=== PATIENT | female | born 1960 | race Hispanic/Latino ===

== ENCOUNTER 2017-07-02 18:13 | Inpatient (IN) | payer BC ==
[~2017-07-02] VITALS: Ht 152.4 cm; Wt 53.6 kg
[2017-07-02] MEDS ORDERED: SODIUM CHLORIDE 0.9% 1000ML 1,000 ML IV ONE (19:48)
[2017-07-02] MEDS ORDERED: ONDANSETRON HCL 4 MG/2 ML VIAL ONE (19:48)
[2017-07-02 20:13] LABS: BASOPHILS % (AUTO) 0.3 % (0.0-5.0); EOSINOPHILS % (AUTO) 0.1 % (0.0-8.0); HEMATOCRIT 41.2 % (36-48); LYMPHOCYTES % (AUTO) 5.1 % (21.0-51.0); MEAN CORPUSCULAR HEMOGLOBIN 32.2 pg (27.0-33.0); MEAN CORPUSCULAR HGB CONC 35.6 g/dL (32.0-36.0); MEAN CORPUSCULAR VOLUME 90.5 fL (79-99); MONOCYTES % (AUTO) 7.1 % (3.0-13.0); NEUTROPHILS % (AUTO) 87.4 % (40.0-77.0); PLATELET COUNT (AUTO) 438 K/uL (130-400); RED BLOOD CELL COUNT(AUTO) 4.56 MIL/uL (4.00-5.50); RED CELL DISTRIBUTION WIDTH 14.1 % (11.0-15.5); WHITE BLOOD COUNT (AUTO) 10.8 K/uL (4.8-10.8)
[2017-07-02 20:38] LABS: ALBUMIN 4.1 g/dL (3.5-5.0); BILIRUBIN,DIRECT 0.2 mg/dL (0.0-0.3); BILIRUBIN,TOTAL 0.8 mg/dL (0.2-1.0); CREATININE 1.4 mg/dL (0.5-1.5); TOTAL PROTEIN, SERUM 8.3 g/dL (6.0-8.3)
[2017-07-02 20:46] LABS: POTASSIUM 2.6 mmol/L (3.5-5.1)
[2017-07-02] MEDS ORDERED: POTASSIUM BICARB/CIT AC 25 MEQ TABLET.EFF ONE (21:10)
[2017-07-02 23:06] VITALS: BP 110/76
[2017-07-02] MEDS ORDERED: FAMO20TA8 PO (23:26)
[2017-07-02] MEDS ORDERED: AFAT40TA PO (23:26)
[2017-07-02] MEDS ORDERED: LEVE500T19 PO (23:26)
[2017-07-02] MEDS: SODIUM CHLORIDE 0.9% 1000ML 1,000 ML IV SCH (23:50)
[2017-07-03 00:42] LABS: APPEARANCE,URINE Clear (CLEAR); BILIRUBIN,URINE Negative (NEGATIVE); COLOR,URINE Yellow (YELLOW); GLUCOSE, URINE (UA) Negative (NEGATIVE); KETONES,URINE Trace mg/dL (NEGATIVE); LEUKOCYTE ESTERASE ,URINE Negative (NEGATIVE); NITRATE,URINE Negative (NEGATIVE); OCCULT BLOOD,URINE Negative (NEGATIVE); PROTEIN,URINE Negative (NEGATIVE); UROBILINOGEN,URINE 0.2 mg/dL (0.2-1.0)
[2017-07-03 03:30] VITALS: BP 108/66
[2017-07-03 04:06] LABS: OCCULT BLOOD STOOL SINGLE ONLY NEGATIVE (NEGATIVE)
[2017-07-03 05:51] LABS: HEMATOCRIT 38.3 % (36-48); MEAN CORPUSCULAR HEMOGLOBIN 31.3 pg (27.0-33.0); MEAN CORPUSCULAR HGB CONC 34.5 g/dL (32.0-36.0); MEAN CORPUSCULAR VOLUME 90.8 fL (79-99); PLATELET COUNT (AUTO) 387 K/uL (130-400); RED BLOOD CELL COUNT(AUTO) 4.22 MIL/uL (4.00-5.50); RED CELL DISTRIBUTION WIDTH 14.2 % (11.0-15.5)
[2017-07-03 06:22] LABS: ALBUMIN 3.5 g/dL (3.5-5.0); CREATININE 1.3 mg/dL (0.5-1.5)
[2017-07-03 06:36] LABS: POTASSIUM 2.8 mmol/L (3.5-5.1)
[2017-07-03 07:29] VITALS: BP 112/71
[2017-07-03] MEDS: POTASSIUM CHLORIDE 20 MEQ ERTAB PO SCH ×2 (08:50→08:51)
[2017-07-03] MEDS: ONDANSETRON HCL 4 MG/2 ML VIAL IVP PRN ×3 (08:50→23:49)
[2017-07-03] MEDS: FAMOTIDINE/PF 20 MG/2 ML VIAL IV SCH (08:50)
[2017-07-03] MEDS: SODIUM CHLORIDE 0.9% 1000ML 1,000 ML IV SCH ×2 (09:10→17:42)
[2017-07-03 11:03] VITALS: BP 126/71
[2017-07-03] MEDS: POTASSIUM CHLORIDE 10% ELIXIR 20 MEQ/15 ML UDCUP PO SCH (12:50)
[2017-07-03] MEDS ORDERED: ERYTHROMYCIN BASE 0.5% OPHTH OINT 1 GM TUBE OU SCH (14:00)
[2017-07-03] MEDS ORDERED: LACTULOSE 20 GM/30 ML UDCUP PO SCH (14:00)
[2017-07-03 16:15] VITALS: BP 100/69
[2017-07-03] MEDS: LEVETIRACETAM 500 MG TABLET PO SCH (21:00)
[2017-07-03 21:21] VITALS: BP 105/71
[2017-07-04] VITALS (8 sets, daily range): BP systolic 94–118; BP diastolic 61–74
[2017-07-04] MEDS: AFATINIB DIMALEATE 40 MG PO SCH (05:00)
[2017-07-04] MEDS: ONDANSETRON HCL 4 MG/2 ML VIAL IVP PRN ×2 (05:26→11:55)
[2017-07-04] MEDS: SODIUM CHLORIDE 0.9% 1000ML 1,000 ML IV SCH ×3 (05:26→23:32)
[2017-07-04 06:10] LABS: HEMATOCRIT 32.9 % (36-48); MEAN CORPUSCULAR HGB CONC 36.1 g/dL (32.0-36.0); MEAN CORPUSCULAR VOLUME 91.5 fL (79-99); PLATELET COUNT (AUTO) 358 K/uL (130-400); RED CELL DISTRIBUTION WIDTH 14.1 % (11.0-15.5); WHITE BLOOD COUNT (AUTO) 7.6 K/uL (4.8-10.8)
[2017-07-04 06:17] LABS: CREATININE 1.1 mg/dL (0.5-1.5)
[2017-07-04 06:22] LABS: EOSINOPHILS % (MANUAL) 2 % (1-6); LYMPHOCYTES % (MANUAL) 17 % (22-44); MAN.DIFF COMMENT-IMPRESSION MANUAL DIFFERENTIAL; MONOCYTES % (MANUAL) 5 % (2-9); PLATELET MORPHOLOGY COMMENT ADEQUATE; SEGMENTED NEUTROPHILS % 76 % (40-70)
[2017-07-04] MEDS ORDERED: POLYETHYLENE GLYCOL 3350 17 GM POWD.PACK PO SCH (09:00)
[2017-07-04] MEDS: LEVETIRACETAM 500 MG TABLET PO SCH ×2 (09:10→20:58)
[2017-07-04] MEDS: FAMOTIDINE/PF 20 MG/2 ML VIAL IV SCH (09:10)
[2017-07-04] MEDS: POTASSIUM CHLORIDE 10% ELIXIR 20 MEQ/15 ML UDCUP PO SCH (11:55)
[2017-07-04] MEDS ORDERED: HYDROCORTISONE 0.5% 30 GM OINT TP PRN (12:15)
[2017-07-04] MEDS ORDERED: HYDROCORTISONE 1% 28.35 GM CREAM TP PRN (13:02)
[2017-07-05 03:18] VITALS: BP 118/70
[2017-07-05] MEDS: AFATINIB DIMALEATE 40 MG PO SCH (05:00)
[2017-07-05] MEDS: SODIUM CHLORIDE 0.9% 1000ML 1,000 ML IV SCH (05:04)
[2017-07-05 07:34] VITALS: BP 102/67
[2017-07-05] MEDS: LEVETIRACETAM 500 MG TABLET PO SCH (09:00)
[2017-07-05] MEDS: FAMOTIDINE/PF 20 MG/2 ML VIAL IV SCH (11:07)
[2017-07-05 11:17] VITALS: BP 111/76
[2017-07-05] MEDS: ONDANSETRON HCL 4 MG/2 ML VIAL IVP PRN (12:25)
[2017-07-05] MEDS: POTASSIUM CHLORIDE 10% ELIXIR 20 MEQ/15 ML UDCUP PO SCH (12:26)
[2017-09-30] MEDS ORDERED: VERA40TA5 PO (13:09)
== END 2017-07-05 12:40 | disposition home or self-care (01) | DRG 392 ==
LOC: EDH 18:13 → OBSVTOIN 21:56 → EDHIP 21:56 → 4BH 22:30 → WSH 07-04 12:25
PROVIDERS: ADMIT Internal Medicine Nephrology; ATTEND Internal Medicine Nephrology
DX: R11.2 Nausea with vomiting, unspecified (principal); C79.31 Secondary malignant neoplasm of brain; C34.90 Malignant neoplasm of unspecified part of unspecified bronchus or lung; E86.9 Volume depletion, unspecified; Z51.11 Encounter for antineoplastic chemotherapy; Z82.49 Family history of ischemic heart disease and other diseases of the circulatory system; Z92.3 Personal history of irradiation; Z90.710 Acquired absence of both cervix and uterus; Z85.118 Personal history of other malignant neoplasm of bronchus and lung; Z88.8 Allergy status to other drugs, medicaments and biological substances
CPT/HCPCS: 36415; 76700; 80048; 80053; 80076; 81003; 82270; 83690; 85025; 85027; 87046; 87177; 87205; 87324; J2405; J3490; J7030

== ENCOUNTER 2017-08-14 02:39 | Emergency (ER) | payer BC ==
[~2017-08-14 02:39] MED LIST: AFAT40TA PO; FAMO20TA8 PO; LEVE500T19 PO
[2017-08-14] MEDS ORDERED: ADENOSINE 3 MG/ML 2ML VIAL IV ONE (03:11)
[2017-08-14 03:39] LABS: CREATINE KINASE MB 0.5 ng/mL (0.5-3.6); THYROID STIMULATING HORMONE 1.83 uIU/mL (0.36-3.74)
[2017-08-14] MEDS ORDERED: METOPROLOL TARTRATE 50 MG TAB ONE (05:34)
[2017-09-30] MEDS ORDERED: VERA40TA5 PO (13:09)
== END 2017-08-14 06:56 | disposition home or self-care (01) ==
LOC: EDH 02:39
DX: I47.1 Supraventricular tachycardia (principal); Z85.118 Personal history of other malignant neoplasm of bronchus and lung; Z85.841 Personal history of malignant neoplasm of brain; Z88.8 Allergy status to other drugs, medicaments and biological substances
CPT/HCPCS: 36415; 71045; 82550; 82553; 84443; 84484; 93005 ×2; 96374; 99285; J0153

== ENCOUNTER 2017-09-12 03:25 | Observation (INO) | payer BC ==
[~2017-09-12] VITALS: Ht 152.4 cm; Wt 53.6 kg
[2017-09-12] MEDS ORDERED: ASPIRIN 325 MG TABLET ONE (03:34)
[2017-09-12] MEDS ORDERED: ADENOSINE 3 MG/ML 2ML VIAL IV ONE (03:36)
[2017-09-12] MEDS ORDERED: SODIUM CHLORIDE 0.9% 1000ML 1,000 ML IV ONE (03:36)
[2017-09-12] MEDS ORDERED: ONDANSETRON HCL MDV 20ML 2 MG/ML VIAL ONE (03:45)
[2017-09-12 04:00] LABS: BASOPHILS % (AUTO) 0.6 % (0.0-5.0); EOSINOPHILS % (AUTO) 0.7 % (0.0-8.0); HEMATOCRIT 37.8 % (36-48); LYMPHOCYTES % (AUTO) 29.1 % (21.0-51.0); MEAN CORPUSCULAR HEMOGLOBIN 32.4 pg (27.0-33.0); MEAN CORPUSCULAR HGB CONC 34.3 g/dL (32.0-36.0); MEAN CORPUSCULAR VOLUME 94.5 fL (79-99); MONOCYTES % (AUTO) 12.4 % (3.0-13.0); NEUTROPHILS % (AUTO) 57.2 % (40.0-77.0); PLATELET COUNT (AUTO) 351 K/uL (130-400); RED BLOOD CELL COUNT(AUTO) 3.99 MIL/uL (4.00-5.50); RED CELL DISTRIBUTION WIDTH 13.9 % (11.0-15.5); WHITE BLOOD COUNT (AUTO) 5.8 K/uL (4.8-10.8)
[2017-09-12 04:05] LABS: CARBON DIOXIDE 28 mmol/L (21-32); CHLORIDE 107 mmol/L (101-111); GLOMERULAR FILTR. RATE CALC 61 mL/min (>60); GLUCOSE,RANDOM 138 mg/dL (70-105); POTASSIUM 3.2 mmol/L (3.5-5.1); SODIUM SERUM 144 mmol/L (136-145); UREA NITROGEN, BLOOD 16 mg/dL (7-18)
[2017-09-12 04:11] LABS: INR 0.95 (0.85-1.15); PARTIAL THROMBOPLASTIN TIME 26.2 SEC (26.3-35.5)
[2017-09-12 04:19] LABS: ALANINE AMINOTRANSFERASE 29 U/L (12-78); ALBUMIN 3.8 g/dL (3.5-5.0); ASPARTATE AMINOTRANSFERASE 37 U/L (10-37); BILIRUBIN,TOTAL 0.4 mg/dL (0.2-1.0); CREATINE KINASE MB < 0.5 ng/mL (0.5-3.6); CREATINE KINASE, TOTAL 85 U/L (21-232); MYOGLOBIN 31 ng/mL (10-92); TOTAL PROTEIN, SERUM 7.4 g/dL (6.0-8.3)
[2017-09-12] MEDS ORDERED: POTASSIUM BICARB/CIT AC 25 MEQ TABLET.EFF ONE (04:54)
[2017-09-12] MEDS ORDERED: METO25TA6 PO (07:58)
[2017-09-12] MEDS ORDERED: OSIM80TA PO (07:58)
[2017-09-12] MEDS: TAGRISSO 80 MG PO SCH (09:00)
[2017-09-12] MEDS ORDERED: METOPROLOL TARTRATE 25 MG TAB PO SCH (09:00)
[2017-09-12] MEDS: ASPIRIN 81MG TAB.CHEW PO SCH (09:30)
[2017-09-12] MEDS ORDERED: MAGNESIUM 2GM PREMIX 50ML 50 ML IV PRN (09:45)
[2017-09-12] MEDS ORDERED: MAGNESIUM 2GM PREMIX 50ML 50 ML IV ONE (10:38)
[2017-09-12 12:50] VITALS: BP 131/75
[2017-09-12 15:16] LABS: CREATINE KINASE MB < 0.5 ng/mL (0.5-3.6); CREATINE KINASE, TOTAL 61 U/L (21-232); MYOGLOBIN 23 ng/mL (10-92); TROPONIN I < 0.04 ng/mL (0.00-0.06)
[2017-09-12] MEDS ORDERED: LIDOCAINE HCL-MPF 1% 2ML VIAL IVP PRN (15:45)
[2017-09-12] MEDS ORDERED: POTASSIUM CHLORIDE 10% ELIXIR 20 MEQ/15 ML UDCUP PO PRN (15:45)
[2017-09-12] MEDS ORDERED: POTASSIUM CHLORIDE 20 MEQ ERTAB PO PRN (15:45)
[2017-09-12] MEDS ORDERED: POTASSIUM CHLORIDE 20MEQ/100ML 100 ML IV PRN (15:45)
[2017-09-12 16:49] VITALS: BP 109/65
[2017-09-12 19:51] VITALS: BP 117/66
[2017-09-12] MEDS: SOTALOL HCL 80 MG TABLET PO SCH (20:46)
[2017-09-12 23:27] VITALS: BP 110/72
[2017-09-13 03:59] VITALS: BP 91/64
[2017-09-13 04:11] LABS: HEMATOCRIT 32.3 % (36-48); MEAN CORPUSCULAR HEMOGLOBIN 34.6 pg (27.0-33.0); MEAN CORPUSCULAR HGB CONC 36.7 g/dL (32.0-36.0); MEAN CORPUSCULAR VOLUME 94.3 fL (79-99); PLATELET COUNT (AUTO) 323 K/uL (130-400); RED BLOOD CELL COUNT(AUTO) 3.42 MIL/uL (4.00-5.50); WHITE BLOOD COUNT (AUTO) 4.6 K/uL (4.8-10.8)
[2017-09-13 04:15] LABS: POTASSIUM 4.2 mmol/L (3.5-5.1)
[2017-09-13 04:21] LABS: BAND NEUTROPHILS % (MANUAL) 2 % (0-2); EOSINOPHILS % (MANUAL) 2 % (1-6); LYMPHOCYTES % (MANUAL) 40 % (22-44); MAN.DIFF COMMENT-IMPRESSION MANUAL DIFFERENTIAL; MONOCYTES % (MANUAL) 12 % (2-9); PLATELET MORPHOLOGY COMMENT ADEQUATE; SEGMENTED NEUTROPHILS % 44 % (40-70)
[2017-09-13 07:00] VITALS: BP 113/72
[2017-09-13] MEDS: ASPIRIN 81MG TAB.CHEW PO SCH (09:00)
[2017-09-13] MEDS ORDERED: ACETAMINOPHEN 325 MG TAB ONE (09:09)
[2017-09-13] MEDS: SOTALOL HCL 80 MG TABLET PO SCH ×2 (09:13→20:40)
[2017-09-13] MEDS: TAGRISSO 80 MG PO SCH (09:15)
[2017-09-13] MEDS ORDERED: ACETAMINOPHEN 325 MG TAB PO PRN (09:15)
[2017-09-13 11:00] VITALS: BP 105/70
[2017-09-13 16:00] VITALS: BP 114/67
[2017-09-13 19:55] VITALS: BP 118/78
[2017-09-13 23:23] VITALS: BP 115/71
[2017-09-14 03:44] LABS: MAGNESIUM 2.1 mg/dL (1.80-2.40); POTASSIUM 4.1 mmol/L (3.5-5.1)
[2017-09-14 03:47] VITALS: BP 90/56
[2017-09-14 07:15] VITALS: BP 121/78
[2017-09-14] MEDS: ASPIRIN 81MG TAB.CHEW PO SCH (08:04)
[2017-09-14] MEDS: SOTALOL HCL 80 MG TABLET PO SCH (08:05)
[2017-09-14] MEDS: TAGRISSO 80 MG PO SCH (08:05)
[2017-09-14] MEDS ORDERED: SOTA80TA PO (09:13)
[2017-09-30] MEDS ORDERED: VERA40TA5 PO (13:09)
== END 2017-09-14 10:10 | disposition home or self-care (01) ==
LOC: EDH 03:25 → EDHIP 04:44 → 2DH 11:56
PROVIDERS: ADMIT Internal Medicine Nephrology; ATTEND Internal Medicine Nephrology
DX: I47.1 Supraventricular tachycardia (principal); C34.90 Malignant neoplasm of unspecified part of unspecified bronchus or lung; C79.31 Secondary malignant neoplasm of brain; E87.6 Hypokalemia; I25.10 Atherosclerotic heart disease of native coronary artery without angina pectoris; I25.2 Old myocardial infarction; Z85.118 Personal history of other malignant neoplasm of bronchus and lung; Z90.710 Acquired absence of both cervix and uterus; Z92.21 Personal history of antineoplastic chemotherapy; Z82.49 Family history of ischemic heart disease and other diseases of the circulatory system
CPT/HCPCS: 36415 ×3; 71045; 80048; 80053; 82550 ×2; 82553 ×2; 83735 ×3; 83874 ×2; 84132; 84484 ×2; 85025 ×2; 85610; 85730; 93005 ×3; 99285; G0378 ×53; J0153; J3475; J7030

== ENCOUNTER 2017-09-24 07:12 | Inpatient (IN) | payer BC ==
[~2017-09-24] VITALS: Ht 152.4 cm; Wt 53.2 kg
[~2017-09-24 07:12] MED LIST changes: -AFAT40TA PO; -FAMO20TA8 PO; +OSIM80TA PO; +SOTA80TA PO
[2017-09-24] MEDS ORDERED: SODIUM CHLORIDE 0.9% 1000ML 1,000 ML IV ONE (07:32)
[2017-09-24] MEDS ORDERED: ADENOSINE 3 MG/ML 2ML VIAL IV ONE (07:39)
[2017-09-24 07:56] LABS: INR 0.95 (0.85-1.15); PARTIAL THROMBOPLASTIN TIME 25.8 SEC (26.3-35.5)
[2017-09-24 08:09] LABS: CARBON DIOXIDE 24 mmol/L (21-32); CHLORIDE 105 mmol/L (101-111); GLOMERULAR FILTR. RATE CALC 61 mL/min (>60); GLUCOSE,RANDOM 130 mg/dL (70-105); POTASSIUM 3.2 mmol/L (3.5-5.1); SODIUM SERUM 140 mmol/L (136-145); UREA NITROGEN, BLOOD 16 mg/dL (7-18)
[2017-09-24 08:25] LABS: ALANINE AMINOTRANSFERASE 21 U/L (12-78); ALBUMIN 3.6 g/dL (3.5-5.0); ASPARTATE AMINOTRANSFERASE 24 U/L (10-37); BILIRUBIN,TOTAL 0.4 mg/dL (0.2-1.0); CREATINE KINASE MB < 0.5 ng/mL (0.5-3.6); CREATINE KINASE, TOTAL 62 U/L (21-232); TOTAL PROTEIN, SERUM 7.1 g/dL (6.0-8.3)
[2017-09-24 08:29] LABS: BASOPHILS % (AUTO) 0.8 % (0.0-5.0); EOSINOPHILS % (AUTO) 0.7 % (0.0-8.0); HEMATOCRIT 37.3 % (36-48); MEAN CORPUSCULAR HEMOGLOBIN 32.2 pg (27.0-33.0); MEAN CORPUSCULAR VOLUME 94.6 fL (79-99); MONOCYTES % (AUTO) 10.8 % (3.0-13.0); NEUTROPHILS % (AUTO) 64.7 % (40.0-77.0); PLATELET COUNT (AUTO) 269 K/uL (130-400); RED BLOOD CELL COUNT(AUTO) 3.95 MIL/uL (4.00-5.50); RED CELL DISTRIBUTION WIDTH 13.8 % (11.0-15.5); WHITE BLOOD COUNT (AUTO) 5.6 K/uL (4.8-10.8)
[2017-09-24] MEDS ORDERED: POTASSIUM BICARB/CIT AC 25 MEQ TABLET.EFF ONE (09:44)
[2017-09-24] MEDS ORDERED: ENOXAPARIN SODIUM 40 MG/0.4 ML SYRINGE SQ ONE (09:44)
[2017-09-24] MEDS ORDERED: SOTALOL HCL 80 MG TABLET PO SCH (10:11)
[2017-09-24] MEDS ORDERED: DILTIAZEM HCL 60 MG TABLET PO SCH (10:12)
[2017-09-24] MEDS ORDERED: DILTIAZEM HCL 60 MG TABLET ONE (10:42)
[2017-09-24] MEDS: VERAPAMIL HCL 80 MG TABLET PO SCH ×2 (15:15→22:19)
[2017-09-24 17:40] VITALS: BP 122/72
[2017-09-24] MEDS ORDERED: ACETAMINOPHEN 325 MG TAB PO PRN (19:30)
[2017-09-24] MEDS ORDERED: ONDANSETRON HCL 4 MG/2 ML VIAL IVP PRN (19:30)
[2017-09-24 19:49] VITALS: BP 112/69
[2017-09-25] VITALS: BP 114/64
[2017-09-25 04:00] VITALS: BP 122/76
[2017-09-25 05:35] LABS: HEMATOCRIT 32.2 % (36-48); MEAN CORPUSCULAR HEMOGLOBIN 33.7 pg (27.0-33.0); MEAN CORPUSCULAR HGB CONC 35.5 g/dL (32.0-36.0); MEAN CORPUSCULAR VOLUME 94.8 fL (79-99); PLATELET COUNT (AUTO) 254 K/uL (130-400); RED CELL DISTRIBUTION WIDTH 14.1 % (11.0-15.5); WHITE BLOOD COUNT (AUTO) 3.9 K/uL (4.8-10.8)
[2017-09-25 06:00] LABS: CREATININE 0.9 mg/dL (0.5-1.5); MAGNESIUM 2.1 mg/dL (1.80-2.40); POTASSIUM 3.6 mmol/L (3.5-5.1); THYROID STIMULATING HORMONE 2.18 uIU/mL (0.36-3.74)
[2017-09-25] MEDS: VERAPAMIL HCL 80 MG TABLET PO SCH ×2 (06:31→14:59)
[2017-09-25 07:45] VITALS: BP 129/78
[2017-09-25] MEDS ORDERED: ENOXAPARIN SODIUM 40 MG/0.4 ML SYRINGE SQ SCH (09:00)
[2017-09-25] MEDS ORDERED: PANTOPRAZOLE 40 MG/VIAL IVP SCH (09:00)
[2017-09-25] MEDS ORDERED: VERA120C2 PO (10:30)
[2017-09-25 11:36] VITALS: BP 109/75
[2017-09-26] MEDS ORDERED: PANTOPRAZOLE SODIUM 40 MG TABLET.DR PO SCH (07:30)
[2017-09-30] MEDS ORDERED: VERA40TA5 PO (13:09)
== END 2017-09-25 15:50 | disposition home or self-care (01) | DRG 309 ==
LOC: EDH 07:12 → EDHIP 08:20 → OBSVTOIN 08:20 → 2DH 17:36
PROVIDERS: ADMIT Internal Medicine Nephrology; ATTEND Internal Medicine Nephrology
DX: I47.1 Supraventricular tachycardia (principal); C34.90 Malignant neoplasm of unspecified part of unspecified bronchus or lung; E87.6 Hypokalemia; I25.10 Atherosclerotic heart disease of native coronary artery without angina pectoris; D64.9 Anemia, unspecified; Z90.710 Acquired absence of both cervix and uterus; Z51.11 Encounter for antineoplastic chemotherapy; Z85.841 Personal history of malignant neoplasm of brain
CPT/HCPCS: 36415; 71045; 80048; 80053; 82550; 82553; 83735; 84443; 84484; 85025; 85027; 85610; 85730; 93005; 99291; C9113; J0153; J1650; J7030

== ENCOUNTER 2017-09-29 20:45 | Emergency (ER) | payer BC ==
[~2017-09-29] VITALS: Ht 160 cm; Wt 72.6 kg
[~2017-09-29 20:45] MED LIST changes: -LEVE500T19 PO; -SOTA80TA PO; +VERA120C2 PO
[2017-09-29] MEDS ORDERED: METOPROLOL TARTRATE 1 MG/ML 5ML VIAL IV ONE (20:57)
[2017-09-29 20:58] LABS: BASOPHILS % (AUTO) 0.6 % (0.0-5.0); HEMATOCRIT 36.4 % (36-48); LYMPHOCYTES % (AUTO) 40.2 % (21.0-51.0); MEAN CORPUSCULAR HEMOGLOBIN 32.1 pg (27.0-33.0); MEAN CORPUSCULAR HGB CONC 33.9 g/dL (32.0-36.0); MEAN CORPUSCULAR VOLUME 94.6 fL (79-99); MONOCYTES % (AUTO) 14.7 % (3.0-13.0); NEUTROPHILS % (AUTO) 43.5 % (40.0-77.0); PLATELET COUNT (AUTO) 304 K/uL (130-400); RED BLOOD CELL COUNT(AUTO) 3.85 MIL/uL (4.00-5.50); WHITE BLOOD COUNT (AUTO) 4.8 K/uL (4.8-10.8)
[2017-09-29 21:12] LABS: CARBON DIOXIDE 28 mmol/L (21-32); CHLORIDE 106 mmol/L (101-111); GLOMERULAR FILTR. RATE CALC 61 mL/min (>60); GLUCOSE,RANDOM 131 mg/dL (70-105); POTASSIUM 3.2 mmol/L (3.5-5.1); SODIUM SERUM 144 mmol/L (136-145); UREA NITROGEN, BLOOD 12 mg/dL (7-18)
[2017-09-29] MEDS ORDERED: DILTIAZEM HCL 5 MG/ML 5 ML VIAL IVP SCH (21:15)
[2017-09-29] MEDS ORDERED: POTASSIUM CHLORIDE 20 MEQ ERTAB PO ONE (21:23)
[2017-09-29 21:26] LABS: ALANINE AMINOTRANSFERASE 25 U/L (12-78); ASPARTATE AMINOTRANSFERASE 24 U/L (10-37); BILIRUBIN,TOTAL 0.3 mg/dL (0.2-1.0); CREATINE KINASE MB < 0.5 ng/mL (0.5-3.6); CREATINE KINASE, TOTAL 77 U/L (21-232); MYOGLOBIN 30 ng/mL (10-92); TOTAL PROTEIN, SERUM 7.7 g/dL (6.0-8.3)
[2017-09-29 22:18] LABS: INR 0.94 (0.85-1.15); PARTIAL THROMBOPLASTIN TIME 26.5 SEC (26.3-35.5); PROTHROMBIN TIME 9.9 SEC (9.6-11.6)
[2017-09-30] MEDS ORDERED: VERA40TA5 PO (13:09)
== END 2017-09-29 22:25 | disposition home or self-care (01) ==
LOC: EDH 20:45
DX: I47.1 Supraventricular tachycardia (principal); I25.10 Atherosclerotic heart disease of native coronary artery without angina pectoris; E11.9 Type 2 diabetes mellitus without complications; Z85.841 Personal history of malignant neoplasm of brain; Z85.118 Personal history of other malignant neoplasm of bronchus and lung; Z88.8 Allergy status to other drugs, medicaments and biological substances
CPT/HCPCS: 36415; 71045; 80053; 82550; 82553; 83874; 84484; 85025; 85610; 85730; 93005 ×2; 94761; 96374; 96375; 99291; J3490

== ENCOUNTER 2017-10-03 05:47 | Observation (INO) | payer BC ==
[2017-09-30 12:58] VITALS: BP 130/72
[~2017-10-03] VITALS: Ht 154.9 cm; Wt 55.1 kg
[2017-10-03] VITALS (14 sets, daily range): BP systolic 114–147; BP diastolic 72–88
[~2017-10-03 05:47] MED LIST changes: -VERA120C2 PO; +VERA40TA5 PO
[2017-10-03] MEDS ORDERED: SODIUM CHLORIDE 0.9% 1000ML 1,000 ML IV ONE (07:31)
[2017-10-03] MEDS ORDERED: LIDOCAINE HCL 2% 20ML ONE (07:38)
[2017-10-03] MEDS ORDERED: MIDAZOLAM HCL 1 MG/ML 2ML VIAL ONE ×6 (07:54→11:34)
[2017-10-03] MEDS ORDERED: MEPERIDINE-PF 25 MG/ML SYG ONE ×4 (07:54→11:34)
[2017-10-03] MEDS ORDERED: ISOPROTERENOL HCL 0.2 MG/ML AMP/VIAL/BAG ONE (08:05)
[2017-10-03] MEDS ORDERED: FENTANYL CITRATE PF 50 MCG/1 ML 2ML VIAL ONE (08:09)
[2017-10-03] MEDS ORDERED: ACETAMINOPHEN-CODEINE 300/30MG TAB PO PRN (12:30)
[2017-10-03] MEDS ORDERED: ACETAMINOPHEN 325 MG TAB PO PRN (12:30)
[2017-10-03] MEDS ORDERED: POTASSIUM CHLORIDE 20 MEQ ERTAB PO PRN (21:45)
[2017-10-03] MEDS ORDERED: HYDRALAZINE HCL 20 MG/ML VIAL IV PRN (21:45)
[2017-10-03] MEDS ORDERED: POTASSIUM CHLORIDE 10% ELIXIR 20 MEQ/15 ML UDCUP PO PRN (21:45)
[2017-10-03] MEDS ORDERED: POTASSIUM CHLORIDE 20MEQ/100ML 100 ML IV PRN (21:45)
[2017-10-03] MEDS ORDERED: LIDOCAINE HCL-MPF 1% 2ML VIAL IVP PRN (21:45)
[2017-10-04 03:15] VITALS: BP 114/63
[2017-10-04 04:02] LABS: HEMATOCRIT 33.6 % (36-48); MEAN CORPUSCULAR HEMOGLOBIN 32.5 pg (27.0-33.0); MEAN CORPUSCULAR HGB CONC 34.4 g/dL (32.0-36.0); MEAN CORPUSCULAR VOLUME 94.5 fL (79-99); PLATELET COUNT (AUTO) 249 K/uL (130-400); RED BLOOD CELL COUNT(AUTO) 3.55 MIL/uL (4.00-5.50); RED CELL DISTRIBUTION WIDTH 14.2 % (11.0-15.5); WHITE BLOOD COUNT (AUTO) 5.3 K/uL (4.8-10.8)
[2017-10-04 04:12] LABS: POTASSIUM 4.4 mmol/L (3.5-5.1)
[2017-10-04 07:20] VITALS: BP 122/76
[2017-10-04] MEDS ORDERED: TAGRISSO 80 MG PO SCH (09:00)
[2017-10-04 11:25] VITALS: BP 116/80
== END 2017-10-04 12:25 | disposition home or self-care (01) ==
LOC: DAH 05:47 → DAHIP 05:48 → DAH 05:48 → 2CH 13:04
PROVIDERS: ADMIT Family Medicine; ATTEND Family Medicine
DX: I47.1 Supraventricular tachycardia (principal); I25.10 Atherosclerotic heart disease of native coronary artery without angina pectoris; E87.6 Hypokalemia; Z90.710 Acquired absence of both cervix and uterus; Z85.118 Personal history of other malignant neoplasm of bronchus and lung; Z85.841 Personal history of malignant neoplasm of brain
CPT/HCPCS: 36415 ×2; 80048; 84132; 85027; 93005; 93613; 93621; 93623; 93653; A4649; C1730 ×4; C1732; C1894 ×5; G0378 ×31; J1644; J2175 ×4; J2250 ×6; J3010; J3490 ×2; J7030; 99156; 99157

== ENCOUNTER 2018-08-26 21:10 | Emergency (ER) | payer BC ==
[2018-08-26] MEDS ORDERED: METOPROLOL TARTRATE 1 MG/ML 5ML VIAL IV ONE (21:51)
[2018-08-26 22:22] LABS: BASOPHILS % (AUTO) 0.4 % (0.0-5.0); EOSINOPHILS % (AUTO) 0.4 % (0.0-8.0); HEMATOCRIT 37.5 % (36-48); LYMPHOCYTES % (AUTO) 18.6 % (21.0-51.0); MEAN CORPUSCULAR HEMOGLOBIN 32.5 pg (27.0-33.0); MEAN CORPUSCULAR HGB CONC 33.5 g/dL (32.0-36.0); MEAN CORPUSCULAR VOLUME 96.9 fL (79-99); NEUTROPHILS % (AUTO) 69.6 % (40.0-77.0); NUCLEATED RED BLOOD CELLS 0.1 % (0.0-0.19); PLATELET COUNT (AUTO) 332 K/uL (130-400); RED BLOOD CELL COUNT(AUTO) 3.87 MIL/uL (4.00-5.50); RED CELL DISTRIBUTION WIDTH 13.8 % (11.0-15.5); WHITE BLOOD COUNT (AUTO) 5.7 K/uL (4.8-10.8)
[2018-08-26 22:32] LABS: CREATININE 0.9 mg/dL (0.5-1.5); POTASSIUM 3.7 mmol/L (3.5-5.1)
[2018-08-26 22:36] LABS: INR 0.92 (0.85-1.15); PARTIAL THROMBOPLASTIN TIME 27.5 SEC (26.3-35.5); PROTHROMBIN TIME 9.7 SEC (9.6-11.6)
[2018-08-26 22:45] LABS: ALBUMIN 4.1 g/dL (3.5-5.0); BILIRUBIN,TOTAL 0.4 mg/dL (0.2-1.0); TOTAL PROTEIN, SERUM 7.6 g/dL (6.0-8.3)
[2018-08-26 23:10] LABS: B-TYPE NATRIURETIC PEPTIDE 40 pg/mL (0-100)
== END 2018-08-27 00:33 | disposition home or self-care (01) ==
LOC: EDH 21:10
DX: R00.0 Tachycardia, unspecified (principal); R00.2 Palpitations; I25.2 Old myocardial infarction; I25.10 Atherosclerotic heart disease of native coronary artery without angina pectoris; E11.9 Type 2 diabetes mellitus without complications; Z79.4 Long term (current) use of insulin; Z85.118 Personal history of other malignant neoplasm of bronchus and lung; Z85.841 Personal history of malignant neoplasm of brain; Z91.041 Radiographic dye allergy status
CPT/HCPCS: 36415; 71045; 80053; 82550; 83880; 84484; 85025; 85610; 85730; 93005 ×2; 96374; 99285; J3490

== ENCOUNTER 2020-11-04 08:13 | Emergency (ER) | payer BC ==
[~2020-11-04] VITALS: Ht 152.4 cm; Wt 59.4 kg
[2020-11-04] MEDS ORDERED: 0.9%NACL 1000ML 1,000 ML IV SCH (08:30)
[2020-11-04] MEDS ORDERED: ONDANSETRON 4MG INJ IVP SCH (08:30)
[2020-11-04 08:31] LABS: BASOPHILS % (AUTO) 0.5 % (0.0-5.0); EOSINOPHILS % (AUTO) 1.2 % (0.0-8.0); HEMATOCRIT 36.5 % (36-48); LYMPHOCYTES % (AUTO) 17.3 % (21.0-51.0); MEAN CORPUSCULAR HEMOGLOBIN 32.6 pg (27.0-33.0); MEAN CORPUSCULAR HGB CONC 32.6 g/dL (32.0-36.0); MONOCYTES % (AUTO) 12.1 % (3.0-13.0); NEUTROPHILS % (AUTO) 68.5 % (40.0-77.0); PLATELET COUNT (AUTO) 238 K/uL (130-400); RED BLOOD CELL COUNT(AUTO) 3.65 MIL/uL (4.00-5.50); RED CELL DISTRIBUTION WIDTH 17.3 % (11.0-15.5); WHITE BLOOD COUNT (AUTO) 8.4 K/uL (4.8-10.8)
[2020-11-04 08:41] LABS: CREATININE 1.2 mg/dL (0.5-1.5)
[2020-11-04 08:45] LABS: ALBUMIN 3.1 g/dL (3.5-5.0); BILIRUBIN,TOTAL 0.6 mg/dL (0.2-1.0); TOTAL PROTEIN, SERUM 6.2 g/dL (6.0-8.3)
[2020-11-04 08:55] VITALS: BP 127/78
[2020-11-04 09:18] LABS: APPEARANCE,URINE Clear (CLEAR); BILIRUBIN,URINE Negative (NEGATIVE); COLOR,URINE Yellow (YELLOW); GLUCOSE, URINE (UA) Negative (NEGATIVE); KETONES,URINE Trace mg/dL (NEGATIVE); LEUKOCYTE ESTERASE ,URINE Negative (NEGATIVE); NITRATE,URINE Negative (NEGATIVE); OCCULT BLOOD,URINE Negative (NEGATIVE); PROTEIN,URINE Trace mg/dL (NEGATIVE)
[2020-11-04 09:29] LABS: BACTERIA,URINE Rare /HPF (None Seen); CALCIUM OXALATE CRYSTALS,UR Few /LPF (None Seen); MUCUS,URINE Moderate LPF (None Seen); RBC,URINE 0-1 /HPF (0-1); SQUAMOUS EPITHELIAL CELL,UR 0-2 /HPF (0-2); WBC,URINE 0-1 /HPF (0-1)
[2020-11-04] MEDS ORDERED: GLYCERIN ADULT SUPP.RECT RC SCH (10:00)
[2020-11-04] MEDS ORDERED: METOCLOPRAMIDE 10 MG/2 ML VIAL IVP SCH (10:00)
[2020-11-04] MEDS ORDERED: LACTULOSE 20 GM/30 ML UDCUP PO SCH (10:00)
[2020-11-04] MEDS ORDERED: METO10TA41 PO (10:18)
[2020-11-04] MEDS ORDERED: LACT10SO9 PO (10:18)
[2020-11-04 11:04] VITALS: BP 127/73
== END 2020-11-04 11:11 | disposition home or self-care (01) ==
LOC: EDH 08:13
DX: K59.00 Constipation, unspecified (principal); R11.2 Nausea with vomiting, unspecified; Z85.118 Personal history of other malignant neoplasm of bronchus and lung; Z91.041 Radiographic dye allergy status; Z79.899 Other long term (current) drug therapy
CPT/HCPCS: 36415; 74176; 80053; 81001; 82150; 83690; 85025; 87077; 87088; 87186; 93005; 96361; 96374; 96375; 99285; J2405; J2765; J7030